=== PATIENT | female | born 1995 | race Caucasian/White ===

== ENCOUNTER → 2021-07-07 | Outpatient (CLI) | payer OTHER ==
[~2021-07-07] MED LIST: ZOFRAN ODT4 MG PO
== END ==
LOC: LAB 18:37
DX: Z20.822 Contact with and (suspected) exposure to COVID-19 (principal)

== ENCOUNTER → 2024-08-24 | Outpatient (CLI) | payer OTHER | LOC: LAB 08:17 | DX: R05.9 Cough, unspecified (principal) ==